=== PATIENT | male | born 1985 | race Asian ===

== ENCOUNTER 2017-07-27 09:19 | Emergency (ER) | payer OTHER ==
[~2017-07-27] VITALS: Ht 180.3 cm; Wt 74.8 kg
--- NOTE | 2017-07-27 09:30 | NUR ---
PATIENT TO ED COMPLAINING OF BRIGHT RED BLOOD IN THE STOOL SINCE THIS MORNING. PT REPORTED LOWER ABDOMINAL DISCOMFORT. ADMITTED NAUSEA, DENIES DIZZINESS. SKIN IS WARM TO TOUCH AND NON DIAPHORETIC. PATIENT IS AFEBRILE.
[2017-07-27] MEDS ORDERED: FAMOTIDINE/PF INJ 20 MG/2 ML VIAL IV ONE ×2 (10:00→10:02)
[2017-07-27] MEDS ORDERED: ONDANSETRON HCL/PF 4 MG/2 ML VIAL IVP ONE (10:00)
[2017-07-27] MEDS ORDERED: IV NS 0.9% 1,000 ML BAG IV ONE (10:00)
[2017-07-27] MEDS ORDERED: ONDANSETRON HCL/PF 4 MG/2 ML VIAL ONE (10:01)
[2017-07-27 10:19] LABS: BASOPHILS # (AUTO) 0.3 /CMM (0.0-0.2); BASOPHILS % (AUTO) 2.1 % (0.0-2.0); EOSINOPHILS % (AUTO) 0.1 % (0.0-6.0); HEMATOCRIT 51 % (39-51); HEMOGLOBIN 17.4 g/dL (13.5-17.5); LYMPHOCYTES # (AUTO) 1.2 /CMM (0.8-4.8); LYMPHOCYTES % (AUTO) 8.7 % (20.0-44.0); MEAN CORPUSCULAR HEMOGLOBIN 32 PG (26.0-33.0); MEAN CORPUSCULAR HGB CONC 35 g/dl (31.0-36.0); MEAN CORPUSCULAR VOLUME 92 fL (80-96); MONOCYTES # (AUTO) 0.4 /CMM (0.1-1.30); MONOCYTES % (AUTO) 2.7 % (2.0-12.0); NEUTROPHILS # (AUTO) 11.8 /CMM (1.8-8.9); NEUTROPHILS % (AUTO) 86.4 % (43.0-81.0); PLATELET COUNT (AUTO) 228 /CMM (150-450); RED BLOOD CELL COUNT(AUTO) 5.47 MIL/uL (4.5-6.0); WHITE BLOOD COUNT (AUTO) 13.7 K/uL (4.3-11.0)
[2017-07-27 10:29] LABS: CALCIUM, SERUM 9.3 mg/dL (8.5-10.1); CREATININE 1.1 mg/dL (0.6-1.3); POTASSIUM 4.6 mmol/L (3.5-5.1)
[2017-07-27 10:35] LABS: ALBUMIN 4.5 g/dL (3.4-5.0); BILIRUBIN,DIRECT 0.1 mg/dL (0.0-0.2); BILIRUBIN,TOTAL 0.3 mg/dL (0.2-1.0); TOTAL PROTEIN, SERUM 8.7 g/dL (6.4-8.2)
[2017-07-27 13:19] VITALS: BP 139/71
== END 2017-07-27 13:20 | disposition home or self-care (01) ==
LOC: ER 09:20
DX: K29.01 Acute gastritis with bleeding (principal); F17.200 Nicotine dependence, unspecified, uncomplicated; Z60.2 Problems related to living alone
CPT/HCPCS: 36415; 80048-TC; 80076-TC; 83690-TC; 85025-TC; A4606; J2405; J3490; J7030; Z7610